=== PATIENT | male | born 1970 | race Caucasian/White ===

== ENCOUNTER 2016-11-15 22:20 | Inpatient (IN) | payer BC ==
[2016-11-15] VITALS: BP 158/89
[~2016-11-15] VITALS: Ht 182.9 cm; Wt 124.7 kg
[~2016-11-15 22:20] MED LIST: AMLO5TAB2 PO; ASPI-807 PO; CARV25TA PO; DIAZ5TAB4 PO; ESCI10TA PO; HYDR-548 PO; LOSA1TAB39 PO; LOVA20TA2 PO; NAPR500T PO; OMEP40CA37 PO; PRAS10TA5 PO
--- NOTE | 2016-11-15 22:20 | NUR ---
PT AMBULATORY TO ER BED 7 C/O CHEST PAIN RADIATING LUE X 1 WEEK. + COUGH/ CONGESTION. PT AOX4 RR EVEN AND UNLABORED. NO SOB NOTED. NAD NOTED. NO NVD AT THIS TIME. PT NOT DIAPHORETIC. PT GOWNED AND PLACED ON MONITOR WAITING FOR MD PAGE.
[2016-11-15] MEDS ORDERED: ASPIRIN 325 MG TABLET PO ONE (22:30)
[2016-11-15] MEDS ORDERED: ASPIRIN 325 MG TABLET ONE (22:43)
--- NOTE | 2016-11-15 22:52 | NUR ---
XRAY AT BEDSIDE
[2016-11-15 22:53] LABS: BASOPHILS % (AUTO) 0.4 % (0.0-2.0); EOSINOPHILS # (AUTO) 0.1 /CMM (0.0-0.7); EOSINOPHILS % (AUTO) 2.1 % (0.0-6.0); HEMATOCRIT 42 % (39-51); HEMOGLOBIN 14.1 g/dL (13.5-17.5); LYMPHOCYTES # (AUTO) 2.2 /CMM (0.8-4.8); LYMPHOCYTES % (AUTO) 31.7 % (20.0-44.0); MEAN CORPUSCULAR HEMOGLOBIN 29 PG (26.0-33.0); MEAN CORPUSCULAR HGB CONC 34 g/dl (31.0-36.0); MEAN CORPUSCULAR VOLUME 87 fL (80-96); MONOCYTES # (AUTO) 0.5 /CMM (0.1-1.30); MONOCYTES % (AUTO) 6.7 % (2.0-12.0); NEUTROPHILS # (AUTO) 4.2 /CMM (1.8-8.9); NEUTROPHILS % (AUTO) 59.1 % (43.0-81.0); PLATELET COUNT (AUTO) 223 /CMM (150-450); RDW COEFFICIENT OF VARIATION 13.6 (11.5-15.0); RED BLOOD CELL COUNT(AUTO) 4.86 MIL/uL (4.5-6.0)
[2016-11-15 23:05] LABS: CALCIUM, SERUM 8.6 mg/dL (8.5-10.1); CARBON DIOXIDE 29 mmol/L (21-32); CHLORIDE 102 mmol/L (98-107); CREATININE 1.2 mg/dL (0.6-1.3); GFR 65 mL/min (>60); GLUCOSE 272 mg/dL (74-106); POTASSIUM 3.5 mmol/L (3.5-5.1); SODIUM SERUM 143 mmol/L (136-145); UREA NITROGEN, BLOOD 15 mg/dL (7-18)
[2016-11-15] MEDS ORDERED: IOHEXOL-350 100 ML VIAL IV ONE (23:09)
[2016-11-15] MEDS ORDERED: IV NS 0.9% 250 ML IV ONE (23:09)
[2016-11-15 23:10] LABS: INR 0.91 (0.87-1.13); PROTHROMBIN TIME 9.7 SECS (9.5-12.7)
[2016-11-15 23:11] LABS: ALANINE AMINOTRANSFERASE 37 U/L (12-78); ALBUMIN 3.7 g/dL (3.4-5.0); ALKALINE PHOSPHATASE 93 U/L (46-116); ASPARTATE AMINOTRANSFERASE 20 U/L (15-37); BILIRUBIN,TOTAL 0.4 mg/dL (0.2-1.0); TOTAL PROTEIN, SERUM 7.1 g/dL (6.4-8.2)
[2016-11-15 23:13] LABS: TROPONIN I < 0.017 ng/mL (0.00-0.056)
--- NOTE | 2016-11-15 23:20 | NUR ---
CALLED NURSING SUP FOR TELE BED
[2016-11-15] MEDS ORDERED: NITROGLYCERIN 0.4 MG/TAB BOTTLE SL ONE (23:30)
--- NOTE | 2016-11-15 23:32 | NUR ---
PT ASSIGNED TO [facility] [phone]
[2016-11-15] MEDS ORDERED: NITROGLYCERIN 0.4 MG/TAB BOTTLE ONE (23:35)
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
--- NOTE | 2016-11-15 23:50 | NUR ---
PER RADIOLOGY, CT WITH CONTRAST MACHINE NOT WORKING AT THIS TIME, INFORMED DR. AVENDANO.
[2016-11-15] MEDS ORDERED: MORPHINE SULFATE INJ 2 MG/ML DISP.SYRIN ONE (23:51)
--- NOTE | 2016-11-15 23:51 | NUR ---
REPORT GIVEN TO MADAN CAMACHO TELE BED
[2016-11-16] MEDS ORDERED: MORPHINE SULFATE INJ 2 MG/ML DISP.SYRIN IV PRN
--- NOTE | 2016-11-16 00:30 | NUR ---
PT TRASNFERED PER ACLS PROTOCOL.
--- NOTE | 2016-11-16 00:35 | NUR ---
ASSISTANT FRONT DESK MANAGER ADMITTING NOTE RECEIVED PT COMING FROM ER VIA RCOOPER, AWAKE AND ALERT, ORIENTED X3, NO RESPIRATORY DISTRESS NOTED DURING PHYSICAL ASSESSMENT, PAIN ON LEFT SHOULDER OF 8/10, WILL PROVIDE PAIN MEDICATION ORDERED, PT CLEAN/DRY AND COMFORTABLE, SAFETY MEASURES IN PLACE, WILL MONITOR HOURLY AND NEEDED.
[2016-11-16] MEDS ORDERED: MAG HYDROX/AL HYDROX/SIMETH 30 ML UDC PO PRN (01:00)
[2016-11-16] MEDS ORDERED: HYDROCODONE/APAP 5/325MG 1 EACH TABLET PO PRN (01:00)
[2016-11-16] MEDS ORDERED: Z GUARD REMEDY 2 OZ OINT TP PRN (01:00)
[2016-11-16] MEDS ORDERED: DIAZEPAM 5 MG TABLET PO PRN (01:00)
[2016-11-16] MEDS ORDERED: ACETAMINOPHEN 325 MG TABLET PO PRN (01:00)
[2016-11-16] MEDS ORDERED: ONDANSETRON HCL/PF 4 MG/2 ML VIAL IVP PRN (01:00)
[2016-11-16] MEDS ORDERED: ZOLPIDEM TARTRATE 5 MG TABLET PO PRN (01:00)
[2016-11-16] MEDS ORDERED: MAGNESIUM HYDROXIDE 30 ML UDC PO PRN (01:00)
[2016-11-16] MEDS ORDERED: MORPHINE SULFATE INJ 2 MG/ML DISP.SYRIN ONE (01:24)
[2016-11-16] MEDS ORDERED: MORPHINE SULFATE INJ 2 MG/ML DISP.SYRIN IM ONE (01:30)
[2016-11-16] MEDS ORDERED: HYDROMORPHONE 1 MG/1 ML DISP.SYRIN ONE (02:32)
--- NOTE | 2016-11-16 02:59 | NUR ---
WHEN ADMINISTERING DILAUDID 1MG, MEDICATION WAS SCANNED BUT FAILED TO RECORD IN THE SYSTEM, MANUAL ENTRY WAS REQUIRED DUE TO NOT HAVING MEDICATION VIAL ANY LONGER.
[2016-11-16] MEDS ORDERED: HYDROMORPHONE 1 MG/1 ML DISP.SYRIN IV ONE (03:00)
[2016-11-16 04:00] VITALS: BP 153/67
--- NOTE | 2016-11-16 06:23 | NUR ---
EXECUTIVE MANAGER CLOSING NOTE PT REMAINED STABLE DURING VETERINARY TOXICOLOGIST, PAIN WAS SUCCESSFULLY MANAGED WITH DILAUDID 1MG X1, PT WOULD LIKE DILAUDID HIS PRN PAIN MEDICATION, PT WILL BE GETTING CT DONE TODAY WHEN MACHINE IS FIXED AND AVAILABLE, WILL ENDORSE TO INCOMING SHIFT FOR HANG
[2016-11-16] MEDS: MORPHINE SULFATE INJ 2 MG/ML DISP.SYRIN IV PRN ×4 (06:31→23:13)
[2016-11-16 06:56] VITALS: BP 148/97
[2016-11-16] MEDS ORDERED: REGADENOSON 0.4 MG/5 ML DISP.SYRIN IVP ONE (07:30)
[2016-11-16 07:37] LABS: BASOPHILS % (AUTO) 0.4 % (0.0-2.0); EOSINOPHILS # (AUTO) 0.1 /CMM (0.0-0.7); EOSINOPHILS % (AUTO) 2.1 % (0.0-6.0); HEMATOCRIT 39 % (39-51); HEMOGLOBIN 13.2 g/dL (13.5-17.5); LYMPHOCYTES % (AUTO) 39.2 % (20.0-44.0); MEAN CORPUSCULAR HEMOGLOBIN 30 PG (26.0-33.0); MEAN CORPUSCULAR HGB CONC 34 g/dl (31.0-36.0); MEAN CORPUSCULAR VOLUME 86 fL (80-96); MONOCYTES # (AUTO) 0.5 /CMM (0.1-1.30); MONOCYTES % (AUTO) 9.3 % (2.0-12.0); NEUTROPHILS # (AUTO) 2.5 /CMM (1.8-8.9); PLATELET COUNT (AUTO) 179 /CMM (150-450); RDW COEFFICIENT OF VARIATION 13.6 (11.5-15.0); RED BLOOD CELL COUNT(AUTO) 4.46 MIL/uL (4.5-6.0); WHITE BLOOD COUNT (AUTO) 5.2 K/uL (4.3-11.0)
[2016-11-16 08:18] LABS: ALBUMIN 3.2 g/dL (3.4-5.0); BILIRUBIN,TOTAL 0.3 mg/dL (0.2-1.0); CALCIUM, SERUM 8.3 mg/dL (8.5-10.1); MAGNESIUM 1.6 mg/dL (1.8-2.4); PHOSPHORUS 3.8 mg/dL (2.5-4.9); POTASSIUM 3.6 mmol/L (3.5-5.1); TOTAL PROTEIN, SERUM 6.4 g/dL (6.4-8.2)
[2016-11-16 08:26] LABS: THYROID STIMULATING HORMONE 2.781 uIU/mL (0.358-3.74)
[2016-11-16] MEDS ORDERED: Medication Not On Formulary EA (Losartan/Hydrochlorothiazide (Losartan-Hctz 100-25 Mg Ta PO SCH (09:00)
[2016-11-16] MEDS ORDERED: LOVASTATIN (NON FORMULARY) 20 MG TABLET PO SCH (09:00)
[2016-11-16] MEDS ORDERED: CARVEDILOL 6.25 MG TABLET PO SCH (09:00)
--- NOTE | 2016-11-16 09:00 | NUR ---
NPO IN AM FOR STRESS TEST,UNABLE STILL TO DO CT SCAN DUE TO MACHINE NOT BEING AVAILABLE.
[2016-11-16] MEDS: ESCITALOPRAM OXALATE (10 MG) 10 MG TABLET PO SCH (13:36)
[2016-11-16] MEDS: PANTOPRAZOLE 40 MG TABLET.DR PO SCH (13:36)
[2016-11-16] MEDS: ASPIRIN 81 MG TAB.CHEW PO SCH (13:36)
[2016-11-16] MEDS: AMLODIPINE BESYLATE 5 MG TABLET PO SCH (13:37)
[2016-11-16] MEDS: HYDROCHLOROTHIAZIDE 25 MG TABLET PO SCH (13:37)
[2016-11-16] MEDS: LOSARTAN POTASSIUM 50 MG TABLET PO SCH (13:38)
[2016-11-16] MEDS ORDERED: IV SET PRIMARY PUMP SET 1 EA INFUS.SET MC ONE (15:42)
[2016-11-16 16:00] VITALS: BP 153/90
[2016-11-16] MEDS: Magnesium 1GM/D5W 100ML PREMIX 100 ML IV SCH ×2 (16:01→17:04)
[2016-11-16] MEDS ORDERED: PRASUGREL HCL 5 MG TABLET PO SCH (17:00)
[2016-11-16] MEDS: glipiZIDE 5 MG TABLET PO SCH (17:49)
[2016-11-16] MEDS: METFORMIN 500 MG TABLET PO SCH (17:49)
--- NOTE | 2016-11-16 18:30 | NUR ---
MED. X 2 FOR CHEST PAIN WITH MORPHINE.STARTED ON DIABETIC MEDS TODAY FOR ELEVATED BGL.
--- NOTE | 2016-11-16 19:30 | NUR ---
RN NOTES RECEIVED PT AWAKE, APPEARS COMFORTABLE IN BED, NO SOB, NO SIGNS OF DISTRESS AND DISCOMFORT NOTED. PT ALERT AND ORIENTED X3, PER PT STILL HAVING ON AND OFF CHEST PAIN WHICH RADIATES TO HIS BACK AND SHOULDER, PAIN AT TOLERABLE LEVEL AT THIS TIME. DENIES NAUSEA AND VOMITING. IV ACCESS ON LEFT AC PATENT AND INTACT. KEPT BED IN THE LOWEST POSITION, LOCKED, SIDE RAILS X2 UP WITH CALL LIGHT WITH IN REACH. KEPT COMFORTABLE AND ATTENDED. WILL CONTINUE TO MONITOR PT.
[2016-11-16 20:00] VITALS: BP 144/86
[2016-11-16] MEDS: CARVEDILOL 12.5 MG TABLET PO SCH (21:10)
[2016-11-16 22:00] VITALS: BP 144/86
[2016-11-16] MEDS ORDERED: ATORVASTATIN 10 MG TABLET PO SCH (22:00)
--- NOTE | 2016-11-16 23:13 | NUR ---
RN NOTES PT COMPLAINS OF CHEST PAIN 03/30, MORPHINE 2MG GIVEN IV. WILL CONTINUE TO MONITOR PT.
--- NOTE | 2016-11-17 06:41 | NUR ---
RN NOTES PT ASLEEP, BREATHING REGULAR AND UNLABORED, NO SIGNS OF DISTRESS AND DISCOMFORT NOTED, TOLERATING ROOM AIR. KEPT PAIN AT TOLERABLE LEVEL. VITAL SIGNS STABLE, AFEBRILE. NO EPISODE OF NAUSEA AND VOMITING. ALL NEEDS ATTENDED. WILL ENDORSE TO MORNING RN FOR CONTINUITY OF CARE.
[2016-11-17] MEDS: glipiZIDE 5 MG TABLET PO SCH (07:34)
[2016-11-17] MEDS: PANTOPRAZOLE 40 MG TABLET.DR PO SCH (07:34)
[2016-11-17 07:35] LABS: CALCIUM, SERUM 8.8 mg/dL (8.5-10.1); CREATININE 0.9 mg/dL (0.6-1.3); MAGNESIUM 1.7 mg/dL (1.8-2.4); POTASSIUM 3.9 mmol/L (3.5-5.1)
[2016-11-17 08:00] VITALS: BP 137/75
--- NOTE | 2016-11-17 08:00 | NUR ---
MS RN NOTE PT. AWAKE, ALERT AND ORIENTED X4. DENIED CHEST PAIN AND SOB. SIDE RAILS UP. CALL LIGHT WITHIN REACH. MONITOR CLOSELY.
[2016-11-17] MEDS: ASPIRIN 81 MG TAB.CHEW PO SCH (08:23)
[2016-11-17] MEDS: HYDROCHLOROTHIAZIDE 25 MG TABLET PO SCH (08:23)
[2016-11-17] MEDS: AMLODIPINE BESYLATE 5 MG TABLET PO SCH (08:23)
[2016-11-17 08:24] VITALS: BP 137/75
[2016-11-17] MEDS: ESCITALOPRAM OXALATE (10 MG) 10 MG TABLET PO SCH (08:24)
[2016-11-17] MEDS: LOSARTAN POTASSIUM 50 MG TABLET PO SCH (08:24)
[2016-11-17] MEDS: METFORMIN 500 MG TABLET PO SCH (08:24)
[2016-11-17] MEDS: CARVEDILOL 12.5 MG TABLET PO SCH (08:24)
--- NOTE | 2016-11-17 10:00 | NUR ---
VS STABLE. NO CHEST PAIN. GIVEN DISCHARGE INSTRUCTION TO THE PT. UNDERSTOOD WELL. TRIED TO TAKE PICTURE ON RT. INGUINAL ABSCESS, BUT PT REFUSE IT. PT SAID THERE IS NO OPEN WOUND, JUST LITTLE LUMP. DISCHARGED FORM SO.
== END 2016-11-17 10:00 | disposition home or self-care (01) | DRG 558 ==
LOC: ER 22:22 → TELE 23:36 → MED 11-16 11:16
PROVIDERS: ADMIT Family Medicine; ATTEND Family Medicine
DX: M75.52 Bursitis of left shoulder (principal); I10 Essential (primary) hypertension; I25.2 Old myocardial infarction; E11.65 Type 2 diabetes mellitus with hyperglycemia; E78.5 Hyperlipidemia, unspecified; E66.9 Obesity, unspecified; F32.9 Major depressive disorder, single episode, unspecified; Z82.3 Family history of stroke; Z86.718 Personal history of other venous thrombosis and embolism; G47.33 Obstructive sleep apnea (adult) (pediatric); I49.3 Ventricular premature depolarization; Z68.37 Body mass index [BMI] 37.0-37.9, adult; Z98.61 Coronary angioplasty status; E83.42 Hypomagnesemia
CPT/HCPCS: 36415; 71010-TC; 80048-TC; 80053-TC; 80061-TC; 80076-TC; 82962-TC; 83735-TC; 84100-TC; 84439-TC; 84443-TC; 84484-TC; 85025-TC; 85730-TC; 87081-TC; 93307-TC; A4606; A9502; J1170; J2270; J2785; J3475; J7050; Q9967; Z7610

== ENCOUNTER 2017-03-03 01:21 | Inpatient (IN) | payer BC ==
[~2017-03-03] VITALS: Ht 182.9 cm; Wt 120.7 kg
--- NOTE | 2017-03-03 01:30 | NUR ---
to bed 1 ambulatory c/o L arm pain x2 days L sided chest pain radiating to L side of neck x4 hrs. pt aaox4 no acute distress noted, resp even and unlabored. skin warm, nondiaphoretic. place pt on cardiac monitoring, continuous pox, o2@2L/nc. er md at bedside to eval pt with orders received. will carry out orders.
--- NOTE | 2017-03-03 01:35 | NUR ---
started sl 18g to R ac, blood drawn and sent to lab.
[2017-03-03 01:45] LABS: BASOPHILS % (AUTO) 0.2 % (0.0-2.0); EOSINOPHILS # (AUTO) 0.2 /CMM (0.0-0.7); HEMATOCRIT 42 % (39-51); HEMOGLOBIN 14.3 g/dL (13.5-17.5); LYMPHOCYTES # (AUTO) 2.8 /CMM (0.8-4.8); LYMPHOCYTES % (AUTO) 32.2 % (20.0-44.0); MEAN CORPUSCULAR HEMOGLOBIN 30 PG (26.0-33.0); MEAN CORPUSCULAR HGB CONC 34 g/dl (31.0-36.0); MEAN CORPUSCULAR VOLUME 88 fL (80-96); MONOCYTES # (AUTO) 0.6 /CMM (0.1-1.30); NEUTROPHILS # (AUTO) 5.2 /CMM (1.8-8.9); NEUTROPHILS % (AUTO) 58.6 % (43.0-81.0); PLATELET COUNT (AUTO) 232 /CMM (150-450); RDW COEFFICIENT OF VARIATION 13.1 (11.5-15.0); RED BLOOD CELL COUNT(AUTO) 4.76 MIL/uL (4.5-6.0); WHITE BLOOD COUNT (AUTO) 8.8 K/uL (4.3-11.0)
[2017-03-03 02:04] LABS: ALANINE AMINOTRANSFERASE 31 U/L (12-78); ALBUMIN 3.6 g/dL (3.4-5.0); ALKALINE PHOSPHATASE 118 U/L (46-116); ASPARTATE AMINOTRANSFERASE 14 U/L (15-37); BILIRUBIN,TOTAL 0.3 mg/dL (0.2-1.0); CALCIUM, SERUM 8.6 mg/dL (8.5-10.1); CARBON DIOXIDE 29 mmol/L (21-32); CHLORIDE 105 mmol/L (98-107); CREATININE 1.1 mg/dL (0.6-1.3); GLUCOSE 155 mg/dL (74-106); POTASSIUM 3.4 mmol/L (3.5-5.1); SODIUM SERUM 143 mmol/L (136-145); UREA NITROGEN, BLOOD 18 mg/dL (7-18)
[2017-03-03 02:05] LABS: TROPONIN I < 0.017 ng/mL (0.00-0.056)
[2017-03-03] MEDS ORDERED: NITROGLYCERIN PACKET 1 GM PACKET ONE (02:08)
--- NOTE | 2017-03-03 02:08 | NUR ---
pt c/o chest pain 03/30. er md made aware.
--- NOTE | 2017-03-03 02:14 | NUR ---
pt medicated as ordered.
--- NOTE | 2017-03-03 02:16 | NUR ---
now pt states "it's really not chest pain, it's sharp pain that goes to my neck." er made aware.
[2017-03-03 02:26] LABS: INR 0.94 (0.87-1.13)
[2017-03-03] MEDS ORDERED: NITROGLYCERIN PACKET 1 GM PACKET TOP ONE (02:30)
--- NOTE | 2017-03-03 02:35 | NUR ---
Report called to Drop Hammer Operator HelperNadia Alexander. Pending Hospital admission.
--- NOTE | 2017-03-03 03:09 | NUR ---
Pt transfered to via melba grant/ emt and rn.
[2017-03-03 03:10] VITALS: BP 110/62
--- NOTE | 2017-03-03 03:10 | NUR ---
RECEIVED PATIENT FROM ER, ADMITTED TO TELE. ALERT AND ORIENTED X4, CALM, NO SOB, NO RESPIRATORY DISTRESS, ON ROOM AIR, SP02 AT ROOM AIR 98%, LUNG SOUNDS ARE CLEAR, ABDOMEN SOFT AND NON-TENDER. COMPLAINING OF CHEST PAIN OF 8/10, PATIENT DESCRIBED PAIN TIGHTNESS ON THE CHEST. RECEIVED NITRO PATCH IN ER. V/S WNL. RIGHT AC SALINE LOCK WITH GAUGE OF #18. AMBULATES TO THE TOILET, STEADY GAIT, SKIN ASSESSMENT PERFORMED, SKIN INTACT, NO EDEMA. PER TELE READING, SR WITH PVCs. ORIENTED TO ROOM, USE OF CALL LIGHT. WILL CONTINUE TO MONITOR.
[2017-03-03] MEDS ORDERED: ZOLPIDEM TARTRATE 5 MG TABLET PO PRN (04:30)
[2017-03-03] MEDS ORDERED: MORPHINE SULFATE INJ 2 MG/ML DISP.SYRIN IV PRN (04:30)
[2017-03-03] MEDS ORDERED: Z GUARD REMEDY 2 OZ OINT TP PRN (04:30)
[2017-03-03] MEDS ORDERED: ONDANSETRON HCL/PF 4 MG/2 ML VIAL IVP PRN (04:30)
[2017-03-03] MEDS ORDERED: INSULIN REGULAR, HUMAN 100 UNIT/ML 3 ML VIAL SQ PRN ×2 (04:30)
[2017-03-03] MEDS ORDERED: MAG HYDROX/AL HYDROX/SIMETH 30 ML UDC PO PRN (04:30)
[2017-03-03] MEDS ORDERED: ACETAMINOPHEN 325 MG TABLET PO PRN (04:30)
[2017-03-03] MEDS ORDERED: HYDROCODONE/APAP 5/325MG 1 EACH TABLET PO PRN (04:30)
[2017-03-03] MEDS ORDERED: DEXTROSE 50%-WATER 50 ML DISP.SYRIN IV PRN ×2 (04:30)
[2017-03-03] MEDS ORDERED: POTASSIUM CHLORIDE 20 MEQ TAB.PRT.SR PO ONE ×2 (04:30→04:39)
[2017-03-03] MEDS ORDERED: MAGNESIUM HYDROXIDE 30 ML UDC PO PRN (04:30)
[2017-03-03] MEDS ORDERED: MORPHINE SULFATE INJ 4 MG/ML DISP.SYRIN ONE (04:32)
--- NOTE | 2017-03-03 04:51 | NUR ---
GIVEN MORPHINE 4 MG IVP, FOR CHEST PAIN OF 8/10, DESCRIBED BURNING. V/S WNL, WILL CONTINUE TO MONITOR.
[2017-03-03] MEDS: BLOOD SUGAR DIAGNOSTIC 1 EACH STRIP IN SCH ×3 (06:36→17:30)
--- NOTE | 2017-03-03 06:39 | NUR ---
PER PATIENT FEELS A LOT BETTER AFTER RECEIVING MORPHINE 4 MG. BG 105 MG/DL, NO INSULIN
--- NOTE | 2017-03-03 06:49 | NUR ---
PATIENT IN BED, ALERT AND AWAKE, NO SOB, NO CHEST PAIN, PER PATIENT, " I FEEL MUCH BETTER." EDUCATED PATIENT ON CARDIAC TESTING. PT VERBALIZED UNDERSTANDING. NEEDS ATTENDED, CALL LIGHT WITHIN REACH.
[2017-03-03 06:53] LABS: TROPONIN I < 0.017 ng/mL (0.00-0.056)
[2017-03-03] MEDS ORDERED: BLOOD SUGAR DIAGNOSTIC 1 EACH STRIP IN SCH (07:30)
[2017-03-03] MEDS ORDERED: PANTOPRAZOLE 40 MG TABLET.DR PO SCH (07:30)
--- NOTE | 2017-03-03 07:30 | NUR ---
ms rn received on bed, awake,alert,oriented x4,not in any form of distress, respirations even and unlabored,no sob noted, lungs are clear, abdomen soft,positive bowel sounds, denies chest pain at this time, will monitor patient.
[2017-03-03 07:47] LABS: MAGNESIUM 1.9 mg/dL (1.8-2.4); PHOSPHORUS 4.2 mg/dL (2.5-4.9)
[2017-03-03 08:00] VITALS: BP 97/49
[2017-03-03] MEDS ORDERED: REGADENOSON 0.4 MG/5 ML DISP.SYRIN IVP ONE (08:30)
[2017-03-03] MEDS ORDERED: LOSARTAN/HCTZ 50-12.5MG/ 1 EA TABLET PO SCH (09:00)
[2017-03-03] MEDS ORDERED: LOVASTATIN (NON FORMULARY) 20 MG TABLET PO SCH (09:00)
[2017-03-03] MEDS ORDERED: ENOXAPARIN SODIUM 40 MG/0.4 ML DISP.SYRIN SQ SCH (09:00)
[2017-03-03] MEDS ORDERED: ASPIRIN 81 MG TAB.CHEW PO SCH (09:00)
[2017-03-03] MEDS ORDERED: ESCITALOPRAM OXALATE (10 MG) 10 MG TABLET PO SCH (09:00)
[2017-03-03] MEDS ORDERED: AMLODIPINE BESYLATE 5 MG TABLET PO SCH (09:00)
[2017-03-03] MEDS ORDERED: CARVEDILOL 12.5 MG TABLET PO SCH (09:00)
[2017-03-03] MEDS ORDERED: POTASSIUM CHLORIDE 20 MEQ TAB.PRT.SR PO SCH (09:00)
--- NOTE | 2017-03-03 09:00 | NUR ---
ms rn was seen by dr. jose antonio grant/ star[facility] for stress test today, remain on npo at this time.
[2017-03-03 10:50] LABS: CHOLESTEROL 130 mg/dL (<200); HDL CHOLESTEROL 31 mg/dL (40-60); LDL 84 mg/dL (0-99); TRIGLYCERIDES 108 mg/dL (30-150)
[2017-03-03 12:00] VITALS: BP 134/66
--- NOTE | 2017-03-03 12:00 | NUR ---
ms rn patient went down for stress test, blood sugar not done.
--- NOTE | 2017-03-03 15:00 | NUR ---
ms rn patient came back from procedure,tolerated well.
[2017-03-03] MEDS: POTASSIUM CHLORIDE 20 MEQ TAB.PRT.SR PO SCH ×2 (15:54→17:46)
[2017-03-03 16:00] VITALS: BP 125/66
[2017-03-03] MEDS ORDERED: PRASUGREL HCL 5 MG TABLET PO SCH (17:00)
--- NOTE | 2017-03-03 17:30 | NUR ---
ms rn called dr. brady for stress test result, ok to go home and have a follow up w/ dr. rosales in one week.
--- NOTE | 2017-03-03 18:30 | NUR ---
ms lab intern instructions given, went home, no distress noted. dr. childers is aware.
[2017-03-03] MEDS ORDERED: ATORVASTATIN 10 MG TABLET PO SCH (22:00)
== END 2017-03-03 19:00 | disposition home or self-care (01) | DRG 206 ==
LOC: ER 01:24 → TELE 02:55 → MED 10:19
PROVIDERS: ADMIT Nurse Practitioner Acute Care; ATTEND Nurse Practitioner Acute Care
DX: M94.0 Chondrocostal junction syndrome [Tietze] (principal); E11.9 Type 2 diabetes mellitus without complications; E78.00 Pure hypercholesterolemia, unspecified; E78.5 Hyperlipidemia, unspecified; E87.6 Hypokalemia; I10 Essential (primary) hypertension; I25.10 Atherosclerotic heart disease of native coronary artery without angina pectoris; I25.2 Old myocardial infarction; Z79.899 Other long term (current) drug therapy; Z82.3 Family history of stroke; Z86.718 Personal history of other venous thrombosis and embolism; Z87.891 Personal history of nicotine dependence; Z98.61 Coronary angioplasty status
CPT/HCPCS: 36415; 71010-TC; 80048-TC; 80061-TC; 80076-TC; 82962-TC; 83735-TC; 84100-TC; 84484-TC; 85025-TC; 85730-TC; 87081-TC; A4606; A9502; J1650; J1815; J2270; J2785; Z7610

== ENCOUNTER 2018-08-06 07:06 | Emergency (ER) | payer SELFPAY ==
[~2018-08-06] VITALS: Ht 182.9 cm; Wt 120.2 kg
[2018-08-06 07:06] VITALS: BP 159/106
[~2018-08-06 07:06] MED LIST changes: -AMLO5TAB2 PO; +AMLO5TAB7 PO; +HYDR-4354 PO; -HYDR-548 PO; +NAPR-1164 PO; -NAPR500T PO
== END 2018-08-06 07:33 | disposition home or self-care (01) ==
LOC: ER 07:07
DX: L02.415 Cutaneous abscess of right lower limb (principal); I10 Essential (primary) hypertension; E11.9 Type 2 diabetes mellitus without complications; Z86.718 Personal history of other venous thrombosis and embolism; Z79.82 Long term (current) use of aspirin; Z79.899 Other long term (current) drug therapy
CPT/HCPCS: 99283; A4606; Z7610

== ENCOUNTER 2019-04-11 15:15 | Emergency (ER) | payer BC ==
[~2019-04-11] VITALS: Ht 182.9 cm; Wt 110.2 kg
[~2019-04-11 15:15] MED LIST changes: -AMLO5TAB7 PO; +AMLO5TAB9 PO
--- NOTE | 2019-04-11 15:30 | NUR ---
"MIDSTERNAL CHEST PAIN W/ SOB X 1 HOUR" PT AAOX4, -SOB, NAD NOTED, VSS ,PENDING MD PAGE
--- NOTE | 2019-04-11 15:31 | NUR ---
DR DUARTE AT BEDSIDE FOR EVAL.
--- NOTE | 2019-04-11 16:02 | NUR ---
IV LINE STARTED BLOOD DRAWN AND SENT TO LAB.
[2019-04-11 16:09] LABS: BASOPHILS % (AUTO) 0.5 % (0.0-2.0); EOSINOPHILS % (AUTO) 2.5 % (0.0-6.0); HEMATOCRIT 47 % (39-51); HEMOGLOBIN 15.6 g/dL (13.5-17.5); LYMPHOCYTES # (AUTO) 1.9 /CMM (0.8-4.8); LYMPHOCYTES % (AUTO) 35.2 % (20.0-44.0); MEAN CORPUSCULAR HGB CONC 34 g/dl (31.0-36.0); MEAN CORPUSCULAR VOLUME 89 fL (80-96); MONOCYTES # (AUTO) 0.5 /CMM (0.1-1.30); MONOCYTES % (AUTO) 8.4 % (2.0-12.0); NEUTROPHILS # (AUTO) 2.9 /CMM (1.8-8.9); NEUTROPHILS % (AUTO) 53.4 % (43.0-81.0); PLATELET COUNT (AUTO) 177 /CMM (150-450); RED BLOOD CELL COUNT(AUTO) 5.24 MIL/uL (4.5-6.0); WHITE BLOOD COUNT (AUTO) 5.5 K/uL (4.3-11.0)
[2019-04-11 16:15] LABS: CALCIUM, SERUM 9.3 mg/dL (8.5-10.1); CARBON DIOXIDE 30 mmol/L (21-32); CHLORIDE 105 mmol/L (98-107); CREATININE 1.1 mg/dL (0.6-1.3); GLUCOSE 139 mg/dL (74-106); SODIUM SERUM 140 mmol/L (136-145); UREA NITROGEN, BLOOD 9 mg/dL (7-18)
[2019-04-11 16:27] LABS: ALANINE AMINOTRANSFERASE 29 U/L (12-78); ALBUMIN 4.1 g/dL (3.4-5.0); ALKALINE PHOSPHATASE 80 U/L (46-116); ASPARTATE AMINOTRANSFERASE 19 U/L (15-37); B-TYPE NATRIURETIC PEPTIDE 414 PG/ML (0-125); BILIRUBIN,DIRECT 0.2 mg/dL (0.0-0.2); BILIRUBIN,TOTAL 0.6 mg/dL (0.2-1.0); TOTAL PROTEIN, SERUM 6.8 g/dL (6.4-8.2)
[2019-04-11] MEDS ORDERED: MAG HYDROX/AL HYDROX/SIMETH 30 ML UDC ONE (16:58)
[2019-04-11] MEDS ORDERED: NITROGLYCERIN PACKET 1 GM PACKET ONE (16:58)
[2019-04-11] MEDS ORDERED: NITROGLYCERIN 0.4 MG/TAB BOTTLE ONE (16:59)
[2019-04-11] MEDS ORDERED: IV NS 0.9% 500 ML BAG IV ONE (17:00)
[2019-04-11] MEDS ORDERED: MAG HYDROX/AL HYDROX/SIMETH 30 ML UDC PO ONE (17:00)
[2019-04-11] MEDS ORDERED: NITROGLYCERIN 0.4 MG/TAB BOTTLE SL ONE (17:00)
[2019-04-11] MEDS ORDERED: EMPA25TA PO (17:17)
[2019-04-11] MEDS ORDERED: GABA-534 PO (17:17)
[2019-04-11] MEDS ORDERED: PANT40TA4 PO (17:17)
[2019-04-11] MEDS ORDERED: AMLO5TAB4 PO (17:17)
[2019-04-11] MEDS ORDERED: ALPR2TAB7 PO (17:17)
[2019-04-11] MEDS ORDERED: TEMA30CA PO (17:17)
[2019-04-11] MEDS ORDERED: HYDR-4077 PO (17:17)
[2019-04-11] MEDS ORDERED: METF-442 PO (17:17)
[2019-04-11] MEDS ORDERED: ATOR80TA PO (17:18)
[2019-04-11] MEDS ORDERED: oxyCODONE/APAP (5/325 MG) 1 UDTAB TABLET ONE (17:53)
[2019-04-11] MEDS ORDERED: ASPIRIN 81 MG TAB.CHEW ONE (17:53)
[2019-04-11] MEDS ORDERED: ASPIRIN EC 81 MG TABLET.DR PO ONE (18:00)
[2019-04-11] MEDS ORDERED: oxyCODONE/APAP (5/325 MG) 1 UDTAB TABLET PO ONE (18:00)
--- NOTE | 2019-04-11 18:08 | NUR ---
BED 308-3
--- NOTE | 2019-04-11 18:59 | NUR ---
Patient does not wish to proceed with medical care recommended by Dr. Molina. Patient given information related to possible complications, up to and including , which could occur as a result of leaving the hospital at this time. Patient verbalizes understanding of risks involved due to leaving against medical advice. Patient has signed AMA form.
[2019-04-11] MEDS ORDERED: ACETAMINOPHEN 325 MG TABLET PO PRN (19:00)
[2019-04-11] MEDS ORDERED: ZOLPIDEM TARTRATE 5 MG TABLET PO PRN (19:00)
[2019-04-11] MEDS ORDERED: HYDROCODONE/APAP 5/325MG 1 EACH TABLET PO PRN (19:00)
[2019-04-11] MEDS ORDERED: MORPHINE SULFATE INJ 2 MG/ML DISP.SYRIN IV PRN (19:00)
[2019-04-11] MEDS ORDERED: Z GUARD REMEDY 2 OZ OINT TP PRN (19:00)
[2019-04-11] MEDS ORDERED: ONDANSETRON HCL/PF 4 MG/2 ML VIAL IVP PRN (19:00)
[2019-04-11] MEDS ORDERED: MAGNESIUM HYDROXIDE 30 ML UDC PO PRN (19:00)
[2019-04-11] MEDS ORDERED: MAG HYDROX/AL HYDROX/SIMETH 30 ML UDC PO PRN (19:00)
[2019-04-11 19:04] VITALS: BP 128/74
== END 2019-04-11 19:07 | disposition left against medical advice (07) ==
LOC: ER 15:21 → UNDOADMIN 18:22 → TELE 18:22
DX: R07.89 Other chest pain (principal); R00.8 Other abnormalities of heart beat; R42 Dizziness and giddiness; I10 Essential (primary) hypertension; E78.00 Pure hypercholesterolemia, unspecified; E11.9 Type 2 diabetes mellitus without complications; I25.2 Old myocardial infarction; R00.1 Bradycardia, unspecified; Z95.5 Presence of coronary angioplasty implant and graft; Z86.718 Personal history of other venous thrombosis and embolism; Z79.82 Long term (current) use of aspirin
CPT/HCPCS: 36415; 71046; 80048; 80076; 83735; 83880; 84484; 85025; 87081; 93005; 96360; 99284; J7040

== ENCOUNTER 2019-06-09 04:35 | Emergency (ER) | payer BC ==
[~2019-06-09 04:35] MED LIST changes: +ALPR2TAB7 PO; +AMLO5TAB4 PO; -AMLO5TAB9 PO; +ATOR80TA PO; -DIAZ5TAB4 PO; +EMPA25TA PO; +GABA-534 PO; +HYDR-4077 PO; -HYDR-4354 PO; -LOVA20TA2 PO; +METF-442 PO; -OMEP40CA37 PO; +PANT40TA4 PO; -PRAS10TA5 PO; +TEMA30CA PO
--- NOTE | 2019-06-09 05:33 | NUR ---
CALLED FOR PT IN WR. NO RESPONSE
--- NOTE | 2019-06-09 06:00 | NUR ---
CALLED PT FOR TRIAGE NO ANSWER.
--- NOTE | 2019-06-09 06:25 | NUR ---
CALLED TO [facility] NO ANSWER.
== END 2019-06-09 06:26 | disposition left against medical advice (07) ==
LOC: ER 04:36
DX: Z53.21 Procedure and treatment not carried out due to patient leaving prior to being seen by health care provider (principal)

== ENCOUNTER 2019-06-13 12:41 | Emergency (ER) | payer BC ==
[~2019-06-13] VITALS: Ht 182.9 cm; Wt 99.8 kg
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
[2019-06-13] MEDS ORDERED: ASPIRIN 81 MG TAB.CHEW PO ONE (13:00)
[2019-06-13 13:14] LABS: BASOPHILS % (AUTO) 0.4 % (0.0-2.0); EOSINOPHILS % (AUTO) 1.5 % (0.0-6.0); HEMATOCRIT 46 % (39-51); HEMOGLOBIN 15.4 g/dL (13.5-17.5); LYMPHOCYTES # (AUTO) 2.6 /CMM (0.8-4.8); LYMPHOCYTES % (AUTO) 38.4 % (20.0-44.0); MEAN CORPUSCULAR HGB CONC 33 g/dl (31.0-36.0); MEAN CORPUSCULAR VOLUME 90 fL (80-96); MONOCYTES # (AUTO) 0.6 /CMM (0.1-1.30); MONOCYTES % (AUTO) 8.1 % (2.0-12.0); NEUTROPHILS # (AUTO) 3.6 /CMM (1.8-8.9); NEUTROPHILS % (AUTO) 51.6 % (43.0-81.0); PLATELET COUNT (AUTO) 230 /CMM (150-450); RED BLOOD CELL COUNT(AUTO) 5.14 MIL/uL (4.5-6.0); WHITE BLOOD COUNT (AUTO) 6.9 K/uL (4.3-11.0)
[2019-06-13] MEDS ORDERED: ASPIRIN 81 MG TAB.CHEW ONE ×2 (13:16→13:17)
[2019-06-13] MEDS ORDERED: NITROGLYCERIN PACKET 1 GM PACKET ONE (13:16)
[2019-06-13 13:24] LABS: CALCIUM, SERUM 8.6 mg/dL (8.5-10.1); CARBON DIOXIDE 30 mmol/L (21-32); CHLORIDE 102 mmol/L (98-107); GLUCOSE 113 mg/dL (74-106); POTASSIUM 3.7 mmol/L (3.5-5.1); SODIUM SERUM 138 mmol/L (136-145); UREA NITROGEN, BLOOD 7 mg/dL (7-18)
[2019-06-13] MEDS ORDERED: NITROGLYCERIN PACKET 1 GM PACKET TD ONE (13:30)
[2019-06-13 13:37] LABS: B-TYPE NATRIURETIC PEPTIDE 475 PG/ML (0-125)
[2019-06-13] MEDS ORDERED: ACETAMINOPHEN 325 MG TABLET PO ONE (14:30)
[2019-06-13] MEDS ORDERED: ACETAMINOPHEN ES 500 MG TABLET ONE (14:33)
--- NOTE | 2019-06-13 16:07 | NUR ---
BENJAMÍN SOLOMON ADVISED THE PATIENT TO BE ADMITTED BUT HE IS CONCERNED ABOUT WHO WILL TAKE CARE OF HIS 2 CHILDREN WITH HIM. BRANDI GONZALEZ CALLED FOR ASSISTANCE
--- NOTE | 2019-06-13 16:12 | NUR ---
BRANDI GONZALEZ AT BEDSIDE
[2019-06-13] MEDS ORDERED: KETOROLAC TROMETHAMINE INJ 30 MG/ML VIAL IV ONE (16:30)
[2019-06-13 17:03] VITALS: BP 122/85
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
== END 2019-06-13 17:05 | disposition left against medical advice (07) ==
LOC: ER 12:42
DX: I20.9 Angina pectoris, unspecified (principal); I10 Essential (primary) hypertension; E78.5 Hyperlipidemia, unspecified; F17.200 Nicotine dependence, unspecified, uncomplicated; I25.2 Old myocardial infarction; E11.9 Type 2 diabetes mellitus without complications; Z79.899 Other long term (current) drug therapy; Z79.84 Long term (current) use of oral hypoglycemic drugs; Z79.82 Long term (current) use of aspirin; Z86.718 Personal history of other venous thrombosis and embolism
CPT/HCPCS: 36415; 71045-TC; 80048-TC; 83880; 84484-TC; 85025-TC; 85730-TC; 87081-TC

== ENCOUNTER 2019-07-25 22:54 | Emergency (ER) | payer BC ==
[~2019-07-25] VITALS: Ht 182.9 cm; Wt 96.2 kg
[~2019-07-25 22:54] MED LIST changes: -NAPR-1164 PO; -TEMA30CA PO
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
--- NOTE | 2019-07-25 23:20 | NUR ---
BLOOD DRAWN AND GIVEN TO PHLEB
--- NOTE | 2019-07-25 23:22 | NUR ---
TECH AT BEDSIDE FOR EKG
[2019-07-25 23:24] LABS: BASOPHILS % (AUTO) 0.4 % (0.0-2.0); EOSINOPHILS % (AUTO) 1.7 % (0.0-6.0); HEMATOCRIT 46 % (39-51); HEMOGLOBIN 15.4 g/dL (13.5-17.5); LYMPHOCYTES # (AUTO) 2.2 /CMM (0.8-4.8); LYMPHOCYTES % (AUTO) 24.7 % (20.0-44.0); MEAN CORPUSCULAR HGB CONC 33 g/dl (31.0-36.0); MEAN CORPUSCULAR VOLUME 91 fL (80-96); MONOCYTES # (AUTO) 0.7 /CMM (0.1-1.30); MONOCYTES % (AUTO) 7.6 % (2.0-12.0); NEUTROPHILS # (AUTO) 5.8 /CMM (1.8-8.9); NEUTROPHILS % (AUTO) 65.6 % (43.0-81.0); PLATELET COUNT (AUTO) 201 /CMM (150-450); RED BLOOD CELL COUNT(AUTO) 5.09 MIL/uL (4.5-6.0); WHITE BLOOD COUNT (AUTO) 8.8 K/uL (4.3-11.0)
[2019-07-25] MEDS ORDERED: ASPIRIN 325 MG TABLET ONE (23:29)
[2019-07-25] MEDS: ASPIRIN 325 MG TABLET PO ONE (23:32)
--- NOTE | 2019-07-25 23:32 | NUR ---
RADIOLOGY AT BEDSIDE FOR XRAY
[2019-07-25 23:33] LABS: CALCIUM, SERUM 8.7 mg/dL (8.5-10.1); CARBON DIOXIDE 33 mmol/L (21-32); CHLORIDE 107 mmol/L (98-107); CREATININE 0.9 mg/dL (0.6-1.3); GLUCOSE 141 mg/dL (74-106); POTASSIUM 3.3 mmol/L (3.5-5.1); SODIUM SERUM 146 mmol/L (136-145); UREA NITROGEN, BLOOD 7 mg/dL (7-18)
[2019-07-25 23:45] LABS: B-TYPE NATRIURETIC PEPTIDE 1538 PG/ML (0-125)
[2019-07-26 00:12] VITALS: BP 154/72
--- NOTE | 2019-07-26 00:16 | NUR ---
Patient is resting comfortably in bed. VSS.
--- NOTE | 2019-07-26 01:15 | NUR ---
IV removed. Catheter intact and site benign. Pressure and 4x4 applied to site. No bleeding noted.Patient discharged to home in stable condition. Written and verbal after care instructions given. Patient verbalizes understanding of instruction.
== END 2019-07-26 01:18 | disposition home or self-care (01) ==
LOC: ER 22:56
DX: R07.89 Other chest pain (principal); I10 Essential (primary) hypertension; E11.9 Type 2 diabetes mellitus without complications; Z86.718 Personal history of other venous thrombosis and embolism; F17.200 Nicotine dependence, unspecified, uncomplicated; Z79.899 Other long term (current) drug therapy; Z79.84 Long term (current) use of oral hypoglycemic drugs; Z79.82 Long term (current) use of aspirin
CPT/HCPCS: 36415; 71045-TC; 80048-TC; 83880; 84484-TC; 85025-TC

== ENCOUNTER → 2020-01-12 | Emergency (ER) | payer BC ==
[~2020-01-12] VITALS: Ht 182.9 cm; Wt 96.2 kg
[~2020-01-12] MED LIST changes: +FLUORESCEIN SODIUM OPHTH 1 EA STRIP OP ONE; +SOD BORATE/BORIC AC/H2O/NACL 118 ML BOTTLE OP ONE; +TETRACAINE HCL 0.5% OPHTALMIC 15 ML BOTTLE OP ONE
[2020-01-12 21:50] VITALS: BP 168/74
--- NOTE | 2020-01-12 22:06 | NUR ---
MARY HERNANDEZ AGACNPBC at the bed side
--- NOTE | 2020-01-12 22:31 | NUR ---
Patient discharged to home in stable condition. Rx and Written and verbal after care instructions given. Patient verbalizes understanding of instruction.
== END | disposition home or self-care (01) ==
LOC: ER 21:50
DX: H00.024 Hordeolum internum left upper eyelid (principal); I10 Essential (primary) hypertension; E11.9 Type 2 diabetes mellitus without complications; Z86.718 Personal history of other venous thrombosis and embolism; Z98.890 Other specified postprocedural states; Z79.899 Other long term (current) drug therapy; Z79.82 Long term (current) use of aspirin

== ENCOUNTER 2021-05-27 18:40 | Emergency (ER) | payer BC ==
[~2021-05-27] VITALS: Ht 180.3 cm; Wt 96.2 kg
[~2021-05-27 18:40] MED LIST changes: -FLUORESCEIN SODIUM OPHTH 1 EA STRIP OP ONE; -PANT40TA4 PO; +PANT40TA49 PO; -SOD BORATE/BORIC AC/H2O/NACL 118 ML BOTTLE OP ONE; -TETRACAINE HCL 0.5% OPHTALMIC 15 ML BOTTLE OP ONE
[2021-05-27 19:01] VITALS: BP 140/105
[2021-05-27] MEDS ORDERED: HYDR-4209 PO (19:32)
[2021-05-27] MEDS ORDERED: HYDROCODONE/APAP 5/325MG TABLET ONE (19:37)
[2021-05-27] MEDS: HYDROCODONE/APAP 5/325MG TABLET PO ONE (19:43)
== END 2021-05-27 19:53 | disposition home or self-care (01) ==
LOC: ER 18:42
DX: S29.012A Strain of muscle and tendon of back wall of thorax, initial encounter (principal); S16.1XXA Strain of muscle, fascia and tendon at neck level, initial encounter; I10 Essential (primary) hypertension; E11.9 Type 2 diabetes mellitus without complications; F17.200 Nicotine dependence, unspecified, uncomplicated; Z98.890 Other specified postprocedural states; Z86.718 Personal history of other venous thrombosis and embolism; Z79.899 Other long term (current) drug therapy; Z79.84 Long term (current) use of oral hypoglycemic drugs; Z79.82 Long term (current) use of aspirin; V49.49XA Driver injured in collision with other motor vehicles in traffic accident, initial encounter; Y93.89 Activity, other specified; Y92.413 State road as the place of occurrence of the external cause; Y99.8 Other external cause status

== ENCOUNTER 2021-10-01 13:05 | Emergency (ER) | payer BC ==
[~2021-10-01] VITALS: Ht 182.9 cm; Wt 89.8 kg
[~2021-10-01 13:05] MED LIST changes: +HYDR-4209 PO
--- NOTE | 2021-10-01 13:53 | NUR ---
TO ER BED 9 AWAITING MD EVAL AND TREATMENT OF WORSENING NECK PAIN.
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
[2021-10-01] MEDS ORDERED: HYDROCODONE/APAP 5/325MG TABLET ONE (14:57)
[2021-10-01] MEDS ORDERED: HYDROCODONE/APAP 5/325MG TABLET PO ONE (15:00)
--- NOTE | 2021-10-01 16:01 | NUR ---
FOLLOWED UP WITH RADIOLOGY RE RESULT, THEY WILL CALL YONI BHAGAT.
--- NOTE | 2021-10-01 17:25 | NUR ---
Patient discharged to home in stable condition. Written and verbal after care instructions given. Patient verbalizes understanding of instruction.
[2021-10-01 17:27] VITALS: BP 140/86
== END 2021-10-01 17:27 | disposition home or self-care (01) ==
LOC: ER 13:45
DX: S16.1XXA Strain of muscle, fascia and tendon at neck level, initial encounter (principal); G89.29 Other chronic pain; M54.50 Low back pain, unspecified; I10 Essential (primary) hypertension; E11.9 Type 2 diabetes mellitus without complications; F17.200 Nicotine dependence, unspecified, uncomplicated; Z98.890 Other specified postprocedural states; Z79.899 Other long term (current) drug therapy; Z79.82 Long term (current) use of aspirin; V49.49XA Driver injured in collision with other motor vehicles in traffic accident, initial encounter; Y93.89 Activity, other specified; Y92.413 State road as the place of occurrence of the external cause; Y99.8 Other external cause status
CPT/HCPCS: 72125-TC; 72128-TC; 72131-TC

== ENCOUNTER 2021-10-13 11:53 | Emergency (ER) | payer BC ==
[~2021-10-13] VITALS: Ht 182.9 cm; Wt 90.7 kg
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
--- NOTE | 2021-10-13 12:26 | NUR ---
AT BEDSIDE FOR EVAL.
[2021-10-13] MEDS ORDERED: CEFEPIME 1 GM in IV D5W 50 ML IV ONE (12:30)
[2021-10-13] MEDS ORDERED: VANCOMYCIN 1 GM in IV D5W 250 ML IV ONE (12:30)
--- NOTE | 2021-10-13 12:37 | NUR ---
IV LINE ESTABLISHED BLOOD DRAWN AND SENT TO LAB.
[2021-10-13 12:50] LABS: BASOPHILS % (AUTO) 0.3 % (0.0-2.0); EOSINOPHILS % (AUTO) 2.4 % (0.0-6.0); HEMATOCRIT 42 % (39-51); HEMOGLOBIN 14.3 g/dL (13.5-17.5); LYMPHOCYTES # (AUTO) 1.9 K/uL (0.8-4.8); LYMPHOCYTES % (AUTO) 22.6 % (20.0-44.0); MEAN CORPUSCULAR HGB CONC 34 g/dl (31.0-36.0); MEAN CORPUSCULAR VOLUME 91 fL (80-96); MONOCYTES # (AUTO) 0.6 K/uL (0.1-1.30); MONOCYTES % (AUTO) 7.2 % (2.0-12.0); NEUTROPHILS # (AUTO) 5.7 K/uL (1.8-8.9); NEUTROPHILS % (AUTO) 67.5 % (43.0-81.0); PLATELET COUNT (AUTO) 314 K/uL (150-450); WHITE BLOOD COUNT (AUTO) 8.5 K/uL (4.3-11.0)
[2021-10-13 13:26] LABS: ALANINE AMINOTRANSFERASE 23 U/L (12-78); ALBUMIN 3.3 g/dL (3.4-5.0); ALKALINE PHOSPHATASE 101 U/L (46-116); ASPARTATE AMINOTRANSFERASE 8 U/L (15-37); BILIRUBIN,DIRECT 0.1 mg/dL (0.0-0.2); BILIRUBIN,TOTAL 0.4 mg/dL (0.2-1.0); CALCIUM, SERUM 9.4 mg/dL (8.5-10.1); CARBON DIOXIDE 31 mmol/L (21-32); CHLORIDE 101 mmol/L (98-107); CREATININE 1.1 mg/dL (0.6-1.3); GLUCOSE 131 mg/dL (74-106); SODIUM SERUM 138 mmol/L (136-145); TOTAL PROTEIN, SERUM 7.6 g/dL (6.4-8.2); UREA NITROGEN, BLOOD 10 mg/dL (7-18)
[2021-10-13] MEDS ORDERED: CLIN300C12 PO (13:57)
--- NOTE | 2021-10-13 14:18 | NUR ---
IV removed. Catheter intact and site benign. Pressure and 4x4 applied to site. No bleeding noted.
[2021-10-13 14:21] VITALS: BP 132/73
--- NOTE | 2021-10-13 14:21 | NUR ---
Patient does not wish to proceed with medical care recommended by Dr. Mcclain. Patient given information related to possible complications, up to and including , which could occur as a result of leaving the hospital at this time. Patient verbalizes understanding of risks involved due to leaving against medical advice. Patient has signed AMA form.
== END 2021-10-13 14:22 | disposition left against medical advice (07) ==
LOC: ER 11:56
DX: E11.621 Type 2 diabetes mellitus with foot ulcer (principal); L97.529 Non-pressure chronic ulcer of other part of left foot with unspecified severity; L03.116 Cellulitis of left lower limb; I10 Essential (primary) hypertension; F17.200 Nicotine dependence, unspecified, uncomplicated; Z98.890 Other specified postprocedural states; Z79.899 Other long term (current) drug therapy; Z79.84 Long term (current) use of oral hypoglycemic drugs; Z79.82 Long term (current) use of aspirin
CPT/HCPCS: 36415; 73630; 80048; 80076; 83605; 84484; 85025; 85730; 87040 ×2; 96365; 96368; 99284; J0692; J3370; J7060